=== PATIENT | female | born 1990 | race Caucasian/White ===

== ENCOUNTER 2022-08-02 23:11 | Emergency (ER) | payer BC ==
[~2022-08-02] VITALS: Ht 160 cm; Wt 90.7 kg
[2022-08-03 00:47] VITALS: BP 137/74
--- NOTE | 2022-08-03 00:56 | NUR ---
Patient stated that, while at work, around 1700 hrs, patient started experiencing pelvic pain and painful urination, pink in color. Upon arriving to hospital, patient stated she had urinated and noticed clots in her urine.
--- NOTE | 2022-08-03 00:58 | NUR ---
PT AMBULATED TO BED #5
--- NOTE | 2022-08-03 01:00 | NUR ---
Patient ambulated with strong gait to room 5. Patient on monitor, A/Ox4, chest rise and fall symmetrical, no s/s of distress.
[2022-08-03 01:09] LABS: APPEARANCE,URINE CLOUDY (CLEAR); BILIRUBIN,URINE NEGATIVE (NEGATIVE); BLOOD, URINE 3+ (NEGATIVE); COLOR,URINE RED (YELLOW); LEUKOCYTE ESTERASE ,URINE 1+ (NEGATIVE); NITRITE, URINE NEGATIVE (NEGATIVE); PH,URINE 7.5 (5.0-9.0); UGLUCOSE NEGATIVE (NEGATIVE)
[2022-08-03 01:14] LABS: RBC,URINE TOO NUMEROUS TO COUN /HPF (0-5)
--- NOTE | 2022-08-03 01:21 | NUR ---
31/F BIB SELF C/C 5/10 INTERMITTENT LOWER ABD PAIN S/P URINATING 5PM TODAY. REPORTS +FREQUENCY +BURNING +BLOOD IN URINE WITH BLOOD CLOTS. PATIENT DENIES N/V/D/C/FEVER/CHILLS AT THIS TIME. STATED THAT SHE HAS HX OF UTI BUT SHE WAS ASYMPTOMATIC. PATIENT AAOX4 AND AMBULATORY. PMHX HYPERCHOLEST., SX DNC JUN 2022 NKA
[2022-08-03] MEDS ORDERED: CEPH-588 PO (01:39)
[2022-08-03 01:50] VITALS: BP 114/61
== END 2022-08-03 01:50 | disposition home or self-care (01) ==
LOC: MED 23:11
DX: N30.01 Acute cystitis with hematuria (principal); Z79.899 Other long term (current) drug therapy
CPT/HCPCS: 81001; 81025; 87086; 99283